=== PATIENT | female | born 1965 | race Caucasian/White ===

== ENCOUNTER 2020-10-25 20:10 | Emergency (ER) | payer MEDICARE, MEDICAID ==
[~2020-10-25] VITALS: Ht 170.2 cm; Wt 64.0 kg
[2020-10-25 20:22] VITALS: BP 137/90
[2020-10-25 21:42] LABS: BASOPHILS % 0.2 % (0.0-2.0); EOSINOPHILS % 0.3 % (0.0-5.0); HEMATOCRIT. 32.8 % (36.0-48.0); HEMOGLOBIN. 10.9 g/dL (12.0-16.0); LYMPHOCYTES % 13.6 % (20.0-50.0); MEAN CORPUSCULAR HEMOGLOBIN 31.8 pg (28.0-32.0); MEAN CORPUSCULAR VOLUME 95.7 fL (81.0-99.0); MEAN PLATELET VOLUME 8.6 fl (7.4-10.4); MONOCYTES % 9.5 % (2.0-8.0); NEUTROPHILS % 76.4 % (40.0-76.0); PLATELET 188 x1000/uL (130-400); RED BLOOD CELL COUNT 3.43 mill/uL (4.2-5.4); RED CELL DISTRIBUTION WIDTH 14.1 % (11.6-14.6)
[2020-10-25 21:47] LABS: CHLORIDE 94 mEq/L (98-107)
[2020-10-25 21:51] LABS: PROTHROMBIN TIME 10.3 sec (9.6-11.0)
== END 2020-10-25 23:36 | disposition home or self-care (01) ==
LOC: ER 20:10
DX: N18.5 Chronic kidney disease, stage 5 (principal); I50.9 Heart failure, unspecified; Z88.0 Allergy status to penicillin; Z86.73 Personal history of transient ischemic attack (TIA), and cerebral infarction without residual deficits
CPT/HCPCS: 36415; 71045; 80053; 85025; 93005; 99285

== ENCOUNTER 2020-10-30 03:05 | Emergency (ER) | payer MEDICARE, MEDICAID ==
[~2020-10-30] VITALS: Ht 162.6 cm; Wt 56.0 kg
[2020-10-30] MEDS ORDERED: ACETAMINOPHEN 325MG TABLET PO STA (03:29)
[2020-10-30 03:54] LABS: BASOPHILS % 0.9 % (0.0-2.0); EOSINOPHILS % 0.4 % (0.0-5.0); HEMATOCRIT. 32.2 % (36.0-48.0); HEMOGLOBIN. 10.4 g/dL (12.0-16.0); LYMPHOCYTES % 9.6 % (20.0-50.0); MEAN CORPUSCULAR HEMOGLOBIN 31.6 pg (28.0-32.0); MEAN CORPUSCULAR VOLUME 97.6 fL (81.0-99.0); MEAN PLATELET VOLUME 7.7 fl (7.4-10.4); MONOCYTES % 5.9 % (2.0-8.0); NEUTROPHILS % 83.2 % (40.0-76.0); PLATELET 204 x1000/uL (130-400); RED CELL DISTRIBUTION WIDTH 14.7 % (11.6-14.6)
[2020-10-30 03:59] LABS: CHLORIDE 93 mEq/L (98-107)
[2020-10-30] MEDS ORDERED: ONDANSETRON HCL 4MG/2ML INJ IV STA (04:20)
[2020-10-30 04:56] LABS: CLARITY URINE TURBID (CLEAR); COLOR URINE YELLOW (YELLOW); KETONES URINE TRACE (NEGATIVE); LEUKOCYTE ESTERASE URINE 3+ (NEGATIVE); NITRITE URINE NEGATIVE (NEGATIVE); OCCULT BLOOD URINE 2+ (NEGATIVE); PH URINE 6.5 (4.5-8.0); PROTEIN URINE 3+ (NEGATIVE); SPECIFIC GRAVITY URINE 1.017 (1.005-1.030); UROBILINOGEN URINE 0.2 E.U./dL (0.2-1.0)
[2020-10-30] MEDS ORDERED: CEFTRIAXONE 1 G PREMIX 50 ML IV ONE (06:00)
[2020-10-30] MEDS ORDERED: CEPH500C2 MT (06:26)
[2020-10-30] MEDS ORDERED: ACET-2708 MT (06:26)
[2020-10-30 07:39] VITALS: BP 150/68
== END 2020-10-30 08:16 | disposition home or self-care (01) ==
LOC: ER 03:05
DX: R10.9 Unspecified abdominal pain (principal); N39.0 Urinary tract infection, site not specified; I12.0 Hypertensive chronic kidney disease with stage 5 chronic kidney disease or end stage renal disease; N18.6 End stage renal disease; Z99.2 Dependence on renal dialysis; Z88.0 Allergy status to penicillin; Z98.84 Bariatric surgery status
CPT/HCPCS: 36415; 74176; 80053; 81003; 83690; 85025; 87077; 87086; 87186; 93005; 96365; 96375; 99285; J0696; J2405

== ENCOUNTER 2021-11-12 03:00 | Inpatient (IN) | payer MEDICARE, MEDICAID ==
[~2021-11-12] VITALS: Ht 167.6 cm; Wt 45.4 kg
[~2021-11-12 03:00] MED LIST: ACET-2708 MT; CEPH500C2 MT
[2021-11-12] MEDS ORDERED: ONDANSETRON HCL 4MG/2ML INJ IV STA (04:11)
[2021-11-12] MEDS ORDERED: PANTOPRAZOLE SODIUM 40 MG/VIAL IV STA (04:11)
[2021-11-12] MEDS ORDERED: ONDANSETRON HCL 4MG/2ML INJ IV NR (05:30)
[2021-11-12] MEDS ORDERED: PANTOPRAZOLE SODIUM 40 MG/VIAL IV NR (05:30)
[2021-11-12 05:53] LABS: BASOPHILS % 0.4 % (0.0-2.0); HEMATOCRIT. 32.2 % (36.0-48.0); HEMOGLOBIN. 10.4 g/dL (12.0-16.0); MEAN CORPUSCULAR HEMOGLOBIN 31.6 pg (28.0-32.0); MEAN CORPUSCULAR VOLUME 97.6 fL (81.0-99.0); MEAN PLATELET VOLUME 8.9 fl (7.4-10.4); MONOCYTES % 4.3 % (2.0-8.0); NEUTROPHILS % 87.3 % (40.0-76.0); PLATELET 171 x1000/uL (130-400); RED CELL DISTRIBUTION WIDTH 15.1 % (11.6-14.6)
[2021-11-12 06:03] LABS: CHLORIDE 102 mEq/L (98-107)
[2021-11-12 09:10] VITALS: BP 168/78
[2021-11-12 09:30] VITALS: BP 155/70
[2021-11-12] MEDS ORDERED: LORAZEPAM 2MG/ML CPJ IV PRN (10:45)
[2021-11-12] MEDS ORDERED: ACETAMINOPHEN 650MG SUPP PR PRN (10:45)
[2021-11-12] MEDS ORDERED: IPRATROPIUM/ALBUTEROL 0.5-3(2.5)MG/3ML NEB NEB PRN (10:45)
[2021-11-12] MEDS ORDERED: NALOXONE HCL 0.4MG/ML VIAL IV PRN (11:00)
[2021-11-12 12:30] VITALS: BP 144/78
[2021-11-12] MEDS: PANTOPRAZOLE SODIUM 40 MG/VIAL IV SCH ×2 (12:33→20:10)
[2021-11-12] MEDS: DEXT 5%/0.45% NACL 1000ML 1,000 ML IV SCH (12:34)
[2021-11-12 13:26] LABS: FERRITIN 128 ng/mL (10-291)
[2021-11-12 13:34] LABS: HEPATITIS B SURFACE ANTIGEN NEGATIVE
[2021-11-12 13:39] LABS: VITAMIN B12 SERUM 592 pg/mL (211-911)
[2021-11-12 13:43] LABS: BASOPHILS % 0.2 % (0.0-2.0); EOSINOPHILS % 0.2 % (0.0-5.0); HEMATOCRIT. 30.1 % (36.0-48.0); HEMOGLOBIN. 10.1 g/dL (12.0-16.0); LYMPHOCYTES % 10.6 % (20.0-50.0); MEAN CORPUSCULAR HEMOGLOBIN 32.3 pg (28.0-32.0); MEAN PLATELET VOLUME 9.1 fl (7.4-10.4); MONOCYTES % 4.4 % (2.0-8.0); NEUTROPHILS % 84.6 % (40.0-76.0); PLATELET 161 x1000/uL (130-400); RED BLOOD CELL COUNT 3.14 mill/uL (4.2-5.4); RED CELL DISTRIBUTION WIDTH 15.6 % (11.6-14.6)
[2021-11-12 16:00] VITALS: BP 142/77
[2021-11-12] MEDS: MORPHINE SULFATE 2 MG/ML CPJ (NOT FOR IM USE) IV PRN ×2 (16:24→22:32)
[2021-11-12] MEDS: ASCORBIC ACID 500 MG TABLET PO SCH ×2 (18:07→20:10)
[2021-11-12] MEDS: FERROUS SULFATE 325MG TABLET PO SCH (18:07)
[2021-11-12 20:00] VITALS: BP 144/77
[2021-11-12] MEDS: ONDANSETRON HCL 4MG/2ML INJ IV PRN (20:10)
[2021-11-13] VITALS: BP 134/65
[2021-11-13 00:50] LABS: HEMATOCRIT. 28.2 % (36.0-48.0); HEMOGLOBIN. 9.5 g/dL (12.0-16.0); MEAN CORPUSCULAR HEMOGLOBIN 32.1 pg (28.0-32.0); MEAN CORPUSCULAR VOLUME 95.9 fL (81.0-99.0); MEAN PLATELET VOLUME 8.9 fl (7.4-10.4); PLATELET 127 x1000/uL (130-400); RED BLOOD CELL COUNT 2.95 mill/uL (4.2-5.4); RED CELL DISTRIBUTION WIDTH 15.4 % (11.6-14.6)
[2021-11-13 04:00] VITALS: BP 146/64
[2021-11-13] MEDS: MORPHINE SULFATE 2 MG/ML CPJ (NOT FOR IM USE) IV PRN ×2 (04:30→20:38)
[2021-11-13 05:00] LABS: PLATELET ESTIMATE SLIGHTLY DECREASED
[2021-11-13 07:50] LABS: MEAN CORPUSCULAR HEMOGLOBIN 31.9 pg (28.0-32.0); MEAN PLATELET VOLUME 9.2 fl (7.4-10.4); PLATELET 127 x1000/uL (130-400); RED BLOOD CELL COUNT 2.81 mill/uL (4.2-5.4); RED CELL DISTRIBUTION WIDTH 15.8 % (11.6-14.6)
[2021-11-13 08:00] VITALS: BP 107/65
[2021-11-13] MEDS: FERROUS SULFATE 325MG TABLET PO SCH ×3 (08:10→18:25)
[2021-11-13 08:12] LABS: CHLORIDE 111 mEq/L (98-107)
[2021-11-13 08:30] LABS: HDL CHOLESTEROL 67 mg/dL (40-59); LDL CHOLESTEROL 27 mg/dL (5-100)
[2021-11-13] MEDS: ASCORBIC ACID 500 MG TABLET PO SCH ×2 (08:55→20:37)
[2021-11-13] MEDS: PANTOPRAZOLE SODIUM 40 MG/VIAL IV SCH ×2 (09:03→20:37)
[2021-11-13] MEDS ORDERED: LEVOFLOXACIN 500MG PREMIX 100 ML IV SCH (10:30)
[2021-11-13] MEDS: DEXT 5%/0.45% NACL 1000ML 1,000 ML IV SCH (10:33)
[2021-11-13 12:00] VITALS: BP 119/70
[2021-11-13 12:20] LABS: HEMATOCRIT 25.1 % (36.0-48.0); HEMOGLOBIN 8.1 g/dL (12.0-16.0)
[2021-11-13] MEDS ORDERED: MIDAZOLAM HCL 5 MG/5 ML VIAL ONE (12:38)
[2021-11-13] MEDS ORDERED: LIDOCAINE HCL 1% 20ML VIAL (Pyxis) INJ ONE (12:39)
[2021-11-13] MEDS ORDERED: PROPOFOL 200MG/20ML VIAL IV ONE (12:39)
[2021-11-13 13:08] LABS: PLATELET ESTIMATE SLIGHTLY DECREASED
[2021-11-13 16:00] VITALS: BP 143/65
[2021-11-13] MEDS: SUCRALFATE 1 G/10 ML UDC PO SCH ×2 (18:25→20:37)
[2021-11-13] MEDS: LEVOFLOXACIN 250MG PREMIX 50 ML IV SCH (18:25)
[2021-11-13 20:00] VITALS: BP 156/75
[2021-11-13 20:41] LABS: HEMATOCRIT 23.7 % (36.0-48.0); HEMOGLOBIN 7.2 g/dL (12.0-16.0)
[2021-11-14] VITALS: BP 115/80
[2021-11-14 04:00] VITALS: BP 100/81
[2021-11-14 06:19] LABS: BASOPHILS % 0.1 % (0.0-2.0); EOSINOPHILS % 0.3 % (0.0-5.0); HEMATOCRIT. 25.3 % (36.0-48.0); HEMOGLOBIN. 8.1 g/dL (12.0-16.0); LYMPHOCYTES % 8.8 % (20.0-50.0); MEAN CORPUSCULAR HEMOGLOBIN 31.9 pg (28.0-32.0); MEAN CORPUSCULAR VOLUME 99.4 fL (81.0-99.0); MEAN PLATELET VOLUME 9.1 fl (7.4-10.4); MONOCYTES % 7.4 % (2.0-8.0); NEUTROPHILS % 83.4 % (40.0-76.0); PLATELET 115 x1000/uL (130-400); RED BLOOD CELL COUNT 2.54 mill/uL (4.2-5.4); RED CELL DISTRIBUTION WIDTH 15.7 % (11.6-14.6)
[2021-11-14] MEDS: SUCRALFATE 1 G/10 ML UDC PO SCH ×4 (07:40→22:56)
[2021-11-14] MEDS: ASCORBIC ACID 500 MG TABLET PO SCH ×2 (09:03→22:56)
[2021-11-14] MEDS: FERROUS SULFATE 325MG TABLET PO SCH ×3 (09:03→18:15)
[2021-11-14] MEDS: PANTOPRAZOLE SODIUM 40 MG/VIAL IV SCH ×2 (09:03→22:56)
[2021-11-14] MEDS: DEXT 5%/0.45% NACL 1000ML 1,000 ML IV SCH (11:23)
[2021-11-14 11:41] LABS: BG BASE EXCESS -3.6 mmol/L (-2.0-2.0); BG CARBOXYHEMOGLOBIN 1.1 % (0.5-1.5); BG DEOXYHEMOGLOBIN 3.1 % (0.0-5.0); BG FRACTION INSPIRED OXYGEN 21; BG HCO3 ACT 21.6 mmol/L (22.0-26.0); BG METHEMOGLOBIN 0.3 % (0.0-1.5); BG OXYGEN SATURATION 96.9 % (92.0-98.5); BG OXYHEMOGLOBIN 95.5 % (94.0-97.0); BG PCO2 39.3 mmHg (35.0-45.0); BG PH 7.357 (7.350-7.450); BG PO2 92.7 mmHg (75.0-100.0); BG SAMPLE SITE RIGHT RADIAL; BG TOTAL HEMOGLOBIN 9.3 g/dL (12.0-18.0); BG VENT MODE ROOM AIR
[2021-11-14 12:00] VITALS: BP 145/87
[2021-11-14] MEDS ORDERED: DIATR MEGLU/DIATRIZOATE SOLN 30ML PO SCH (13:00)
[2021-11-14] MEDS ORDERED: IOHEXOL-300 100 ML BOTTLE ONE (15:19)
[2021-11-14] MEDS: METRONIDAZOLE 500 MG PREMIX 100 ML IV SCH (18:14)
[2021-11-14 20:00] VITALS: BP 171/86
[2021-11-14 20:45] LABS: HEMATOCRIT 23.8 % (36.0-48.0); HEMOGLOBIN 7.8 g/dL (12.0-16.0)
[2021-11-14] MEDS: EPOETIN ALFA-EPBX 10,000 UNIT/ML VIAL SUBCUT SCH (22:57)
[2021-11-14] MEDS: MORPHINE SULFATE 2 MG/ML CPJ (NOT FOR IM USE) IV PRN (22:58)
[2021-11-15] VITALS: BP 136/77
[2021-11-15 01:08] LABS: HEMATOCRIT 27.7 % (36.0-48.0)
[2021-11-15 04:00] VITALS: BP 159/87
[2021-11-15 04:05] LABS: CLARITY URINE CLEAR (CLEAR); COLOR URINE YELLOW (YELLOW); KETONES URINE NEGATIVE (NEGATIVE); LEUKOCYTE ESTERASE URINE TRACE (NEGATIVE); NITRITE URINE NEGATIVE (NEGATIVE); OCCULT BLOOD URINE NEGATIVE (NEGATIVE); PH URINE 5.5 (4.5-8.0); PROTEIN URINE 3+ (NEGATIVE); SPECIFIC GRAVITY URINE 1.023 (1.005-1.030); UROBILINOGEN URINE 0.2 E.U./dL (0.2-1.0)
[2021-11-15] MEDS: SUCRALFATE 1 G/10 ML UDC PO SCH ×4 (06:18→23:02)
[2021-11-15] MEDS: METRONIDAZOLE 500 MG PREMIX 100 ML IV SCH ×2 (06:18→17:12)
[2021-11-15 08:00] VITALS: BP 168/60
[2021-11-15] MEDS: FERROUS SULFATE 325MG TABLET PO SCH ×3 (09:20→17:12)
[2021-11-15] MEDS: PANTOPRAZOLE SODIUM 40 MG/VIAL IV SCH ×2 (09:20→23:00)
[2021-11-15] MEDS: ASCORBIC ACID 500 MG TABLET PO SCH ×2 (09:20→23:02)
[2021-11-15] MEDS: DEXT 5%/0.45% NACL 1000ML 1,000 ML IV SCH (09:57)
[2021-11-15] MEDS ORDERED: OMEP40CA20 MT (11:13)
[2021-11-15] MEDS ORDERED: SUCR1TAB MT (11:13)
[2021-11-15 11:45] LABS: BASOPHILS % 0.2 % (0.0-2.0); EOSINOPHILS % 0.5 % (0.0-5.0); HEMATOCRIT. 29.5 % (36.0-48.0); HEMOGLOBIN. 9.5 g/dL (12.0-16.0); LYMPHOCYTES % 14.1 % (20.0-50.0); MEAN CORPUSCULAR HEMOGLOBIN 31.9 pg (28.0-32.0); MEAN CORPUSCULAR VOLUME 99.2 fL (81.0-99.0); MEAN PLATELET VOLUME 9.1 fl (7.4-10.4); MONOCYTES % 6.6 % (2.0-8.0); NEUTROPHILS % 78.6 % (40.0-76.0); PLATELET 132 x1000/uL (130-400); RED BLOOD CELL COUNT 2.98 mill/uL (4.2-5.4); RED CELL DISTRIBUTION WIDTH 16.2 % (11.6-14.6)
[2021-11-15 12:00] VITALS: BP 139/71
[2021-11-15] MEDS: MORPHINE SULFATE 2 MG/ML CPJ (NOT FOR IM USE) IV PRN (12:01)
[2021-11-15] MEDS: LEVOFLOXACIN 250MG PREMIX 50 ML IV SCH (12:02)
[2021-11-15] MEDS ORDERED: LEVO250T58 MT (13:01)
[2021-11-15 20:00] VITALS: BP 136/52
[2021-11-16] VITALS: BP 167/86
[2021-11-16] MEDS: MORPHINE SULFATE 2 MG/ML CPJ (NOT FOR IM USE) IV PRN ×2 (00:53→08:39)
[2021-11-16 04:00] VITALS: BP 179/83
[2021-11-16] MEDS: HYDRALAZINE 20MG/ML VIAL IV PRN (05:40)
[2021-11-16] MEDS: METRONIDAZOLE 500 MG PREMIX 100 ML IV SCH ×2 (05:40→17:01)
[2021-11-16 08:00] VITALS: BP 157/78
[2021-11-16] MEDS: FERROUS SULFATE 325MG TABLET PO SCH ×3 (08:37→17:01)
[2021-11-16] MEDS: PANTOPRAZOLE SODIUM 40 MG/VIAL IV SCH ×2 (08:37→21:55)
[2021-11-16] MEDS: ASCORBIC ACID 500 MG TABLET PO SCH ×2 (08:37→21:55)
[2021-11-16] MEDS: SUCRALFATE 1 G/10 ML UDC PO SCH ×4 (08:37→21:55)
[2021-11-16 12:00] VITALS: BP 175/105
[2021-11-16] MEDS: AMLODIPINE 10MG TABLET PO SCH (13:54)
[2021-11-16 16:00] VITALS: BP 138/81
[2021-11-16 20:00] VITALS: BP 164/87
[2021-11-17] VITALS (7 sets, daily range): BP systolic 128–173; BP diastolic 71–109
[2021-11-17 01:27] LABS: HEPATITIS B SURFACE ANTIGEN NEGATIVE
[2021-11-17] MEDS: METRONIDAZOLE 500 MG PREMIX 100 ML IV SCH ×2 (05:07→17:32)
[2021-11-17] MEDS: PANTOPRAZOLE SODIUM 40 MG/VIAL IV SCH ×2 (08:59→20:43)
[2021-11-17] MEDS: AMLODIPINE 10MG TABLET PO SCH ×2 (08:59→12:35)
[2021-11-17] MEDS: SUCRALFATE 1 G/10 ML UDC PO SCH ×4 (08:59→20:43)
[2021-11-17] MEDS: ASCORBIC ACID 500 MG TABLET PO SCH ×2 (08:59→20:43)
[2021-11-17] MEDS: FERROUS SULFATE 325MG TABLET PO SCH ×3 (08:59→17:32)
[2021-11-17] MEDS: LEVOFLOXACIN 250MG PREMIX 50 ML IV SCH (12:34)
[2021-11-17] MEDS ORDERED: NALOXONE HCL 0.4MG/ML VIAL IV PRN (20:30)
[2021-11-17] MEDS: EPOETIN ALFA-EPBX 10,000 UNIT/ML VIAL SUBCUT SCH (20:43)
[2021-11-17] MEDS: HYDROCODONE/ACETAMINOPHEN 5/325MG TABLET PO PRN (20:45)
[2021-11-18] VITALS: BP 133/73
[2021-11-18 04:00] VITALS: BP 147/93
[2021-11-18] MEDS: HYDROCODONE/ACETAMINOPHEN 5/325MG TABLET PO PRN ×3 (04:43→20:43)
[2021-11-18 06:16] LABS: BASOPHILS % 0.4 % (0.0-2.0); EOSINOPHILS % 0.6 % (0.0-5.0); HEMATOCRIT. 27.3 % (36.0-48.0); LYMPHOCYTES % 24.5 % (20.0-50.0); MEAN CORPUSCULAR HEMOGLOBIN 31.9 pg (28.0-32.0); MEAN CORPUSCULAR VOLUME 96.7 fL (81.0-99.0); MEAN PLATELET VOLUME 8.9 fl (7.4-10.4); MONOCYTES % 11.1 % (2.0-8.0); NEUTROPHILS % 63.4 % (40.0-76.0); PLATELET 145 x1000/uL (130-400); RED BLOOD CELL COUNT 2.83 mill/uL (4.2-5.4); RED CELL DISTRIBUTION WIDTH 15.8 % (11.6-14.6)
[2021-11-18 08:30] VITALS: BP 142/73
[2021-11-18] MEDS: METRONIDAZOLE 500MG TABLET PO SCH ×2 (09:28→20:43)
[2021-11-18] MEDS: ASCORBIC ACID 500 MG TABLET PO SCH ×2 (09:28→20:43)
[2021-11-18] MEDS: AMLODIPINE 10MG TABLET PO SCH (09:28)
[2021-11-18] MEDS: FERROUS SULFATE 325MG TABLET PO SCH ×3 (09:29→17:54)
[2021-11-18] MEDS: PANTOPRAZOLE SODIUM 40 MG/VIAL IV SCH ×2 (09:29→20:42)
[2021-11-18] MEDS: SUCRALFATE 1 G/10 ML UDC PO SCH ×4 (09:29→20:42)
[2021-11-18 12:00] VITALS: BP 138/71
[2021-11-18 16:00] VITALS: BP 133/76
[2021-11-18 20:00] VITALS: BP 133/72
[2021-11-19] VITALS: BP 149/87
[2021-11-19 04:00] VITALS: BP 156/91
[2021-11-19] MEDS: HYDROCODONE/ACETAMINOPHEN 5/325MG TABLET PO PRN ×2 (04:13→09:40)
[2021-11-19 06:32] LABS: BASOPHILS % 0.5 % (0.0-2.0); EOSINOPHILS % 0.4 % (0.0-5.0); HEMATOCRIT. 24.5 % (36.0-48.0); HEMOGLOBIN. 8.1 g/dL (12.0-16.0); LYMPHOCYTES % 26.4 % (20.0-50.0); MEAN CORPUSCULAR HEMOGLOBIN 31.6 pg (28.0-32.0); MEAN CORPUSCULAR VOLUME 96.4 fL (81.0-99.0); MEAN PLATELET VOLUME 9.3 fl (7.4-10.4); MONOCYTES % 11.1 % (2.0-8.0); NEUTROPHILS % 61.6 % (40.0-76.0); PLATELET 159 x1000/uL (130-400); RED BLOOD CELL COUNT 2.55 mill/uL (4.2-5.4); RED CELL DISTRIBUTION WIDTH 15.9 % (11.6-14.6)
[2021-11-19] MEDS: SUCRALFATE 1 G/10 ML UDC PO SCH ×4 (06:34→21:09)
[2021-11-19] MEDS: FERROUS SULFATE 325MG TABLET PO SCH ×3 (07:49→17:26)
[2021-11-19 08:00] VITALS: BP 139/81
[2021-11-19] MEDS: PANTOPRAZOLE SODIUM 40 MG/VIAL IV SCH ×2 (09:30→21:11)
[2021-11-19] MEDS: METRONIDAZOLE 500MG TABLET PO SCH ×2 (09:31→21:33)
[2021-11-19] MEDS: AMLODIPINE 10MG TABLET PO SCH (09:31)
[2021-11-19] MEDS: ASCORBIC ACID 500 MG TABLET PO SCH ×2 (09:31→21:08)
[2021-11-19] MEDS ORDERED: LEVOFLOXACIN 250MG TABLET PO SCH (11:00)
[2021-11-19 12:00] VITALS: BP_SYST 156; BP_SYST 178; BP_DIAS 78; BP_DIAS 79
[2021-11-19 16:00] VITALS: BP 122/75
[2021-11-19 20:00] VITALS: BP 116/70
[2021-11-19] MEDS: EPOETIN ALFA-EPBX 10,000 UNIT/ML VIAL SUBCUT SCH (21:11)
[2021-11-19] MEDS: DIPHENHYDRAMINE 50MG/ML VIAL IV PRN (21:19)
[2021-11-20] VITALS: BP 124/72
[2021-11-20] MEDS: HYDROCODONE/ACETAMINOPHEN 5/325MG TABLET PO PRN ×3 (00:46→17:25)
[2021-11-20 04:00] VITALS: BP 129/70
[2021-11-20 08:00] VITALS: BP 126/70
[2021-11-20] MEDS: FERROUS SULFATE 325MG TABLET PO SCH ×3 (08:46→17:25)
[2021-11-20] MEDS: SUCRALFATE 1 G/10 ML UDC PO SCH ×4 (08:46→20:54)
[2021-11-20] MEDS: ASCORBIC ACID 500 MG TABLET PO SCH ×2 (08:47→20:55)
[2021-11-20] MEDS: AMLODIPINE 10MG TABLET PO SCH (08:47)
[2021-11-20] MEDS: PANTOPRAZOLE SODIUM 40 MG/VIAL IV SCH ×2 (09:28→20:54)
[2021-11-20 12:00] VITALS: BP 117/71
[2021-11-20] MEDS: ONDANSETRON HCL 4MG/2ML INJ IV PRN (14:10)
[2021-11-20 16:00] VITALS: BP 129/71
[2021-11-20 18:46] LABS: HEPATITIS B SURFACE ANTIGEN NEGATIVE
[2021-11-20 20:00] VITALS: BP 110/70
[2021-11-21] VITALS: BP 150/88
[2021-11-21] MEDS: HYDROCODONE/ACETAMINOPHEN 5/325MG TABLET PO PRN ×3 (00:14→21:57)
[2021-11-21 04:00] VITALS: BP 127/68
[2021-11-21 08:00] VITALS: BP 103/64
[2021-11-21] MEDS: AMLODIPINE 10MG TABLET PO SCH (09:00)
[2021-11-21] MEDS: SUCRALFATE 1 G/10 ML UDC PO SCH ×4 (09:14→21:54)
[2021-11-21] MEDS: PANTOPRAZOLE SODIUM 40 MG/VIAL IV SCH ×2 (09:14→21:54)
[2021-11-21] MEDS: FERROUS SULFATE 325MG TABLET PO SCH ×3 (09:15→18:48)
[2021-11-21] MEDS: ASCORBIC ACID 500 MG TABLET PO SCH ×2 (09:15→21:53)
[2021-11-21] MEDS ORDERED: METOCLOPRAMIDE HCL 10MG/2ML VIAL IV NR (11:15)
[2021-11-21] MEDS ORDERED: SORBITOL 70% SOLN 30ML PO NR (11:15)
[2021-11-21 12:00] VITALS: BP 155/71
[2021-11-21 16:00] VITALS: BP 116/70
[2021-11-21] MEDS: DOCUSATE SODIUM 250MG CAPSULE PO SCH (18:48)
[2021-11-21 20:00] VITALS: BP 135/86
[2021-11-21] MEDS: EPOETIN ALFA-EPBX 4,000 UNIT/ML VIAL SUBCUT SCH (21:54)
[2021-11-21] MEDS: EPOETIN ALFA-EPBX 10,000 UNIT/ML VIAL SUBCUT SCH (21:54)
[2021-11-21] MEDS: SENNOSIDES/DOCUSATE SOD 8.6/50MG TABLET PO SCH (21:55)
[2021-11-22] VITALS: BP 146/96
[2021-11-22 04:00] VITALS: BP 132/67
[2021-11-22] MEDS: SUCRALFATE 1 G/10 ML UDC PO SCH ×4 (06:28→21:04)
[2021-11-22] MEDS: HYDROCODONE/ACETAMINOPHEN 5/325MG TABLET PO PRN ×3 (06:39→19:57)
[2021-11-22 08:00] VITALS: BP 153/83
[2021-11-22 08:29] LABS: BASOPHILS % 0.4 % (0.0-2.0); EOSINOPHILS % 0.3 % (0.0-5.0); HEMATOCRIT. 25.8 % (36.0-48.0); HEMOGLOBIN. 8.3 g/dL (12.0-16.0); LYMPHOCYTES % 22.4 % (20.0-50.0); MEAN CORPUSCULAR HEMOGLOBIN 31.6 pg (28.0-32.0); MEAN PLATELET VOLUME 8.2 fl (7.4-10.4); MONOCYTES % 9.2 % (2.0-8.0); NEUTROPHILS % 67.7 % (40.0-76.0); PLATELET 179 x1000/uL (130-400); RED BLOOD CELL COUNT 2.61 mill/uL (4.2-5.4); RED CELL DISTRIBUTION WIDTH 15.8 % (11.6-14.6)
[2021-11-22] MEDS: AMLODIPINE 10MG TABLET PO SCH (09:12)
[2021-11-22] MEDS: ASCORBIC ACID 500 MG TABLET PO SCH ×2 (09:12→21:05)
[2021-11-22] MEDS: PANTOPRAZOLE SODIUM 40 MG/VIAL IV SCH ×2 (09:12→21:04)
[2021-11-22] MEDS: DOCUSATE SODIUM 250MG CAPSULE PO SCH ×2 (09:12→17:30)
[2021-11-22] MEDS: FERROUS SULFATE 325MG TABLET PO SCH ×3 (09:13→17:30)
[2021-11-22 16:00] VITALS: BP_SYST 119; BP_SYST 121; BP_DIAS 60; BP_DIAS 73
[2021-11-22 20:00] VITALS: BP 134/79
[2021-11-22] MEDS: SENNOSIDES/DOCUSATE SOD 8.6/50MG TABLET PO SCH (21:04)
[2021-11-23] VITALS: BP 129/74
[2021-11-23 04:00] VITALS: BP 130/75
[2021-11-23] MEDS: HYDROCODONE/ACETAMINOPHEN 5/325MG TABLET PO PRN ×2 (05:42→20:06)
[2021-11-23 08:00] VITALS: BP 128/76
[2021-11-23 08:21] LABS: BASOPHILS % 0.6 % (0.0-2.0); EOSINOPHILS % 0.6 % (0.0-5.0); HEMATOCRIT. 24.8 % (36.0-48.0); HEMOGLOBIN. 8.1 g/dL (12.0-16.0); LYMPHOCYTES % 30.8 % (20.0-50.0); MEAN CORPUSCULAR HEMOGLOBIN 32.3 pg (28.0-32.0); MEAN CORPUSCULAR VOLUME 99.2 fL (81.0-99.0); MEAN PLATELET VOLUME 8.2 fl (7.4-10.4); MONOCYTES % 10.3 % (2.0-8.0); NEUTROPHILS % 57.7 % (40.0-76.0); PLATELET 160 x1000/uL (130-400); RED CELL DISTRIBUTION WIDTH 16.2 % (11.6-14.6)
[2021-11-23] MEDS: SUCRALFATE 1 G/10 ML UDC PO SCH ×4 (08:34→20:06)
[2021-11-23] MEDS: DOCUSATE SODIUM 250MG CAPSULE PO SCH ×2 (08:35→17:32)
[2021-11-23] MEDS: PANTOPRAZOLE SODIUM 40 MG/VIAL IV SCH ×2 (08:35→20:06)
[2021-11-23] MEDS: ASCORBIC ACID 500 MG TABLET PO SCH ×2 (08:35→20:06)
[2021-11-23] MEDS: AMLODIPINE 10MG TABLET PO SCH (08:37)
[2021-11-23] MEDS: FERROUS SULFATE 325MG TABLET PO SCH ×3 (08:38→17:32)
[2021-11-23 12:00] VITALS: BP 128/74
[2021-11-23 16:00] VITALS: BP 138/78
[2021-11-23] MEDS ORDERED: NALOXONE HCL 0.4MG/ML VIAL IV PRN (19:00)
[2021-11-23 20:00] VITALS: BP 131/80
[2021-11-23] MEDS: SENNOSIDES/DOCUSATE SOD 8.6/50MG TABLET PO SCH (20:06)
[2021-11-24] VITALS: BP 141/87
[2021-11-24 04:00] VITALS: BP 126/77
[2021-11-24 05:40] LABS: BASOPHILS % 0.4 % (0.0-2.0); EOSINOPHILS % 0.7 % (0.0-5.0); HEMATOCRIT. 24.4 % (36.0-48.0); HEMOGLOBIN. 7.9 g/dL (12.0-16.0); LYMPHOCYTES % 30.5 % (20.0-50.0); MEAN CORPUSCULAR HEMOGLOBIN 31.8 pg (28.0-32.0); MEAN CORPUSCULAR VOLUME 97.6 fL (81.0-99.0); MEAN PLATELET VOLUME 8.1 fl (7.4-10.4); MONOCYTES % 8.3 % (2.0-8.0); NEUTROPHILS % 60.1 % (40.0-76.0); PLATELET 176 x1000/uL (130-400); RED CELL DISTRIBUTION WIDTH 16.6 % (11.6-14.6)
[2021-11-24 08:00] VITALS: BP 148/81
[2021-11-24] MEDS: DOCUSATE SODIUM 250MG CAPSULE PO SCH ×2 (08:29→17:12)
[2021-11-24] MEDS: AMLODIPINE 10MG TABLET PO SCH (08:29)
[2021-11-24] MEDS: ASCORBIC ACID 500 MG TABLET PO SCH ×2 (08:29→21:12)
[2021-11-24] MEDS: FERROUS SULFATE 325MG TABLET PO SCH ×3 (08:29→17:12)
[2021-11-24] MEDS: SUCRALFATE 1 G/10 ML UDC PO SCH ×4 (08:29→21:11)
[2021-11-24] MEDS: PANTOPRAZOLE SODIUM 40 MG/VIAL IV SCH ×2 (08:45→21:11)
[2021-11-24] MEDS: HYDROCODONE/ACETAMINOPHEN 5/325MG TABLET PO PRN ×2 (09:05→17:13)
[2021-11-24 12:00] VITALS: BP 135/80
[2021-11-24 16:00] VITALS: BP 131/78
[2021-11-24 20:00] VITALS: BP 135/77
[2021-11-24] MEDS: EPOETIN ALFA-EPBX 4,000 UNIT/ML VIAL SUBCUT SCH (21:11)
[2021-11-24] MEDS: EPOETIN ALFA-EPBX 10,000 UNIT/ML VIAL SUBCUT SCH (21:11)
[2021-11-24] MEDS: SENNOSIDES/DOCUSATE SOD 8.6/50MG TABLET PO SCH (21:12)
[2021-11-25] VITALS: BP 143/86
[2021-11-25 04:00] VITALS: BP 152/89
[2021-11-25] MEDS: HYDROCODONE/ACETAMINOPHEN 5/325MG TABLET PO PRN ×3 (05:30→21:03)
[2021-11-25 08:00] VITALS: BP 128/71
[2021-11-25 09:36] LABS: BASOPHILS % 0.3 % (0.0-2.0); EOSINOPHILS % 0.3 % (0.0-5.0); HEMATOCRIT. 25.6 % (36.0-48.0); LYMPHOCYTES % 13.1 % (20.0-50.0); MEAN CORPUSCULAR HEMOGLOBIN 31.3 pg (28.0-32.0); MEAN CORPUSCULAR VOLUME 99.8 fL (81.0-99.0); MEAN PLATELET VOLUME 8.2 fl (7.4-10.4); NEUTROPHILS % 80.3 % (40.0-76.0); PLATELET 172 x1000/uL (130-400); RED BLOOD CELL COUNT 2.56 mill/uL (4.2-5.4); RED CELL DISTRIBUTION WIDTH 16.8 % (11.6-14.6)
[2021-11-25] MEDS: PANTOPRAZOLE SODIUM 40 MG/VIAL IV SCH ×2 (10:22→21:02)
[2021-11-25] MEDS: ASCORBIC ACID 500 MG TABLET PO SCH ×2 (10:23→21:02)
[2021-11-25] MEDS: AMLODIPINE 10MG TABLET PO SCH (10:23)
[2021-11-25] MEDS: FERROUS SULFATE 325MG TABLET PO SCH ×3 (10:23→18:17)
[2021-11-25] MEDS: SUCRALFATE 1 G/10 ML UDC PO SCH ×4 (10:27→21:02)
[2021-11-25] MEDS: DOCUSATE SODIUM 250MG CAPSULE PO SCH ×2 (10:27→17:00)
[2021-11-25 12:00] VITALS: BP 130/76
[2021-11-25 16:00] VITALS: BP 136/80
[2021-11-25 20:00] VITALS: BP 148/92
[2021-11-25] MEDS: SENNOSIDES/DOCUSATE SOD 8.6/50MG TABLET PO SCH (21:02)
[2021-11-25] MEDS: ONDANSETRON HCL 4MG/2ML INJ IV PRN (23:10)
[2021-11-26] VITALS: BP 143/84
[2021-11-26 04:00] VITALS: BP 143/83
[2021-11-26 08:00] VITALS: BP 155/80
[2021-11-26 08:33] LABS: BASOPHILS % 0.5 % (0.0-2.0); EOSINOPHILS % 0.1 % (0.0-5.0); HEMATOCRIT. 25.7 % (36.0-48.0); HEMOGLOBIN. 8.3 g/dL (12.0-16.0); LYMPHOCYTES % 14.5 % (20.0-50.0); MEAN CORPUSCULAR HEMOGLOBIN 32.2 pg (28.0-32.0); MEAN CORPUSCULAR VOLUME 99.8 fL (81.0-99.0); MEAN PLATELET VOLUME 8.1 fl (7.4-10.4); MONOCYTES % 8.7 % (2.0-8.0); NEUTROPHILS % 76.2 % (40.0-76.0); PLATELET 171 x1000/uL (130-400); RED BLOOD CELL COUNT 2.57 mill/uL (4.2-5.4); RED CELL DISTRIBUTION WIDTH 17.4 % (11.6-14.6)
[2021-11-26] MEDS: AMLODIPINE 10MG TABLET PO SCH (09:00)
[2021-11-26] MEDS: FERROUS SULFATE 325MG TABLET PO SCH ×3 (09:00→18:08)
[2021-11-26] MEDS: SUCRALFATE 1 G/10 ML UDC PO SCH ×4 (09:00→21:45)
[2021-11-26] MEDS: ASCORBIC ACID 500 MG TABLET PO SCH ×2 (09:00→21:46)
[2021-11-26] MEDS: DOCUSATE SODIUM 250MG CAPSULE PO SCH ×2 (09:00→18:08)
[2021-11-26] MEDS: PANTOPRAZOLE 40MG DR TABLET PO SCH ×2 (09:00→21:46)
[2021-11-26] MEDS: HYDROCODONE/ACETAMINOPHEN 5/325MG TABLET PO PRN ×4 (09:03→21:47)
[2021-11-26 12:00] VITALS: BP 156/78
[2021-11-26 16:00] VITALS: BP 114/67
[2021-11-26 20:00] VITALS: BP 110/68
[2021-11-26] MEDS: EPOETIN ALFA-EPBX 4,000 UNIT/ML VIAL SUBCUT SCH (21:00)
[2021-11-26] MEDS: SENNOSIDES/DOCUSATE SOD 8.6/50MG TABLET PO SCH (21:46)
[2021-11-26] MEDS: EPOETIN ALFA-EPBX 10,000 UNIT/ML VIAL SUBCUT SCH (21:46)
[2021-11-27] VITALS: BP 109/67
[2021-11-27] MEDS: HYDROCODONE/ACETAMINOPHEN 5/325MG TABLET PO PRN ×3 (02:15→20:54)
[2021-11-27 04:00] VITALS: BP 134/81
[2021-11-27 07:57] VITALS: BP 149/79
[2021-11-27 09:02] LABS: BASOPHILS % 0.2 % (0.0-2.0); EOSINOPHILS % 1.1 % (0.0-5.0); HEMATOCRIT. 24.3 % (36.0-48.0); HEMOGLOBIN. 7.9 g/dL (12.0-16.0); LYMPHOCYTES % 33.3 % (20.0-50.0); MEAN CORPUSCULAR HEMOGLOBIN 32.6 pg (28.0-32.0); MEAN CORPUSCULAR VOLUME 99.8 fL (81.0-99.0); MEAN PLATELET VOLUME 7.8 fl (7.4-10.4); MONOCYTES % 11.7 % (2.0-8.0); NEUTROPHILS % 53.7 % (40.0-76.0); PLATELET 157 x1000/uL (130-400); RED BLOOD CELL COUNT 2.43 mill/uL (4.2-5.4); RED CELL DISTRIBUTION WIDTH 17.6 % (11.6-14.6)
[2021-11-27] MEDS: FERROUS SULFATE 325MG TABLET PO SCH ×3 (09:17→17:14)
[2021-11-27] MEDS: AMLODIPINE 10MG TABLET PO SCH (09:17)
[2021-11-27] MEDS: SUCRALFATE 1 G/10 ML UDC PO SCH ×4 (09:17→20:54)
[2021-11-27] MEDS: DOCUSATE SODIUM 250MG CAPSULE PO SCH ×2 (09:18→17:14)
[2021-11-27] MEDS: ASCORBIC ACID 500 MG TABLET PO SCH ×2 (09:18→20:54)
[2021-11-27] MEDS: PANTOPRAZOLE 40MG DR TABLET PO SCH ×2 (09:18→20:55)
[2021-11-27 12:00] VITALS: BP 130/69
[2021-11-27 16:00] VITALS: BP 144/75
[2021-11-27 20:00] VITALS: BP 124/76
[2021-11-27] MEDS: SENNOSIDES/DOCUSATE SOD 8.6/50MG TABLET PO SCH (21:05)
[2021-11-28] VITALS: BP 141/78
[2021-11-28] MEDS: HYDROCODONE/ACETAMINOPHEN 5/325MG TABLET PO PRN ×2 (01:00→21:55)
[2021-11-28 02:56] LABS: HEPATITIS B SURFACE ANTIGEN NEGATIVE
[2021-11-28 04:00] VITALS: BP 156/75
[2021-11-28 08:00] VITALS: BP 157/87
[2021-11-28] MEDS: AMLODIPINE 10MG TABLET PO SCH (09:00)
[2021-11-28] MEDS: DOCUSATE SODIUM 250MG CAPSULE PO SCH ×2 (09:07→17:00)
[2021-11-28] MEDS: PANTOPRAZOLE 40MG DR TABLET PO SCH ×2 (09:07→21:00)
[2021-11-28] MEDS: FERROUS SULFATE 325MG TABLET PO SCH ×3 (09:07→17:00)
[2021-11-28] MEDS: ASCORBIC ACID 500 MG TABLET PO SCH ×2 (09:07→21:00)
[2021-11-28] MEDS: SUCRALFATE 1 G/10 ML UDC PO SCH ×4 (09:07→21:00)
[2021-11-28 12:00] VITALS: BP 134/79
[2021-11-28 16:00] VITALS: BP 146/83
[2021-11-28 20:00] VITALS: BP 167/95
[2021-11-28] MEDS ORDERED: EPOETIN ALFA-EPBX 10,000 UNIT/ML VIAL SUBCUT SCH (21:00)
[2021-11-28] MEDS: SENNOSIDES/DOCUSATE SOD 8.6/50MG TABLET PO SCH (21:00)
[2021-11-28] MEDS: HYDRALAZINE 20MG/ML VIAL IV PRN (21:01)
[2021-11-28] MEDS ORDERED: NALOXONE HCL 0.4 MG/ML 1ML VIAL IV PRN (22:00)
[2021-11-29] VITALS: BP 136/74
[2021-11-29 04:00] VITALS: BP 156/80
[2021-11-29 08:00] VITALS: BP 149/78
[2021-11-29 08:36] LABS: MEAN CORPUSCULAR HEMOGLOBIN 32.3 pg (28.0-32.0); MEAN CORPUSCULAR VOLUME 102.9 fL (81.0-99.0); MEAN PLATELET VOLUME 8.5 fl (7.4-10.4); PLATELET 174 x1000/uL (130-400); RED CELL DISTRIBUTION WIDTH 18.1 % (11.6-14.6)
[2021-11-29 08:41] LABS: HEMATOCRIT. 29.9 % (36.0-48.0); HEMOGLOBIN. 9.4 g/dL (12.0-16.0)
[2021-11-29] MEDS: SUCRALFATE 1 G/10 ML UDC PO SCH ×4 (08:54→21:14)
[2021-11-29] MEDS: PANTOPRAZOLE 40MG DR TABLET PO SCH ×2 (08:54→21:14)
[2021-11-29] MEDS: AMLODIPINE 10MG TABLET PO SCH (08:54)
[2021-11-29] MEDS: ASCORBIC ACID 500 MG TABLET PO SCH ×2 (08:54→21:14)
[2021-11-29] MEDS: FERROUS SULFATE 325MG TABLET PO SCH ×3 (08:55→17:49)
[2021-11-29] MEDS: DOCUSATE SODIUM 250MG CAPSULE PO SCH ×2 (08:55→17:48)
[2021-11-29] MEDS: HYDROCODONE/ACETAMINOPHEN 5/325MG TABLET PO PRN ×2 (08:58→17:48)
[2021-11-29 12:00] VITALS: BP 142/79
[2021-11-29 16:00] VITALS: BP 156/85
[2021-11-29 17:01] LABS: PLATELET ESTIMATE NORMAL
[2021-11-29 20:00] VITALS: BP 138/90
[2021-11-29] MEDS: SENNOSIDES/DOCUSATE SOD 8.6/50MG TABLET PO SCH (21:14)
[2021-11-30] VITALS: BP 146/82
[2021-11-30] MEDS: HYDROCODONE/ACETAMINOPHEN 5/325MG TABLET PO PRN ×4 (01:00→22:23)
[2021-11-30 04:00] VITALS: BP 146/80
[2021-11-30 07:21] LABS: BASOPHILS % 0.6 % (0.0-2.0); HEMATOCRIT. 30.2 % (36.0-48.0); HEMOGLOBIN. 9.6 g/dL (12.0-16.0); LYMPHOCYTES % 22.5 % (20.0-50.0); MEAN CORPUSCULAR HEMOGLOBIN 32.3 pg (28.0-32.0); MEAN CORPUSCULAR VOLUME 102.1 fL (81.0-99.0); MEAN PLATELET VOLUME 8.2 fl (7.4-10.4); MONOCYTES % 11.2 % (2.0-8.0); NEUTROPHILS % 64.7 % (40.0-76.0); PLATELET 179 x1000/uL (130-400); RED BLOOD CELL COUNT 2.96 mill/uL (4.2-5.4); RED CELL DISTRIBUTION WIDTH 17.9 % (11.6-14.6)
[2021-11-30] MEDS: PANTOPRAZOLE 40MG DR TABLET PO SCH ×2 (09:25→20:39)
[2021-11-30] MEDS: ASCORBIC ACID 500 MG TABLET PO SCH ×2 (09:25→20:39)
[2021-11-30] MEDS: SUCRALFATE 1 G/10 ML UDC PO SCH ×4 (09:25→20:39)
[2021-11-30] MEDS: FERROUS SULFATE 325MG TABLET PO SCH ×3 (09:26→17:18)
[2021-11-30] MEDS: AMLODIPINE 10MG TABLET PO SCH (09:27)
[2021-11-30] MEDS: DOCUSATE SODIUM 250MG CAPSULE PO SCH ×2 (09:29→17:19)
[2021-11-30 12:00] VITALS: BP 148/83
[2021-11-30 16:00] VITALS: BP 156/86
[2021-11-30 20:00] VITALS: BP 143/80
[2021-11-30] MEDS: SENNOSIDES/DOCUSATE SOD 8.6/50MG TABLET PO SCH (20:39)
[2021-11-30] MEDS: HYDRALAZINE HCL 50MG TABLET PO SCH (21:04)
[2021-11-30] MEDS: DIPHENHYDRAMINE 50MG/ML VIAL IV PRN (22:30)
[2021-12-01] VITALS: BP 145/76
[2021-12-01 04:00] VITALS: BP 149/78
[2021-12-01] MEDS: HYDROCODONE/ACETAMINOPHEN 5/325MG TABLET PO PRN (04:02)
[2021-12-01 06:16] LABS: BASOPHILS % 0.3 % (0.0-2.0); EOSINOPHILS % 1.9 % (0.0-5.0); HEMATOCRIT. 29.7 % (36.0-48.0); HEMOGLOBIN. 9.4 g/dL (12.0-16.0); LYMPHOCYTES % 36.7 % (20.0-50.0); MEAN CORPUSCULAR HEMOGLOBIN 32.3 pg (28.0-32.0); MEAN PLATELET VOLUME 7.7 fl (7.4-10.4); MONOCYTES % 10.4 % (2.0-8.0); NEUTROPHILS % 50.7 % (40.0-76.0); PLATELET 188 x1000/uL (130-400); RED BLOOD CELL COUNT 2.91 mill/uL (4.2-5.4); RED CELL DISTRIBUTION WIDTH 17.6 % (11.6-14.6)
[2021-12-01 08:00] VITALS: BP 159/115
[2021-12-01] MEDS: ASCORBIC ACID 500 MG TABLET PO SCH ×2 (09:52→23:21)
[2021-12-01] MEDS: PANTOPRAZOLE 40MG DR TABLET PO SCH ×2 (09:52→23:21)
[2021-12-01] MEDS: FERROUS SULFATE 325MG TABLET PO SCH ×3 (09:52→17:54)
[2021-12-01] MEDS: SUCRALFATE 1 G/10 ML UDC PO SCH ×4 (09:52→23:21)
[2021-12-01] MEDS: AMLODIPINE 10MG TABLET PO SCH (09:52)
[2021-12-01] MEDS: DOCUSATE SODIUM 250MG CAPSULE PO SCH ×2 (09:53→16:42)
[2021-12-01] MEDS: HYDRALAZINE HCL 50MG TABLET PO SCH ×2 (09:53→23:21)
[2021-12-01 12:00] VITALS: BP 144/77
[2021-12-01 16:00] VITALS: BP 142/79
[2021-12-01 20:00] VITALS: BP 143/83
[2021-12-01] MEDS: SENNOSIDES/DOCUSATE SOD 8.6/50MG TABLET PO SCH (23:21)
[2021-12-01] MEDS: EPOETIN ALFA 10000UNITS/ML VIAL SUBCUT SCH (23:22)
[2021-12-02] VITALS: BP 135/78
[2021-12-02] MEDS: HYDROCODONE/ACETAMINOPHEN 5/325MG TABLET PO PRN ×3 (01:13→18:50)
[2021-12-02 04:00] VITALS: BP 145/90
[2021-12-02] MEDS: PANTOPRAZOLE 40MG DR TABLET PO SCH ×2 (06:42→20:56)
[2021-12-02] MEDS: SUCRALFATE 1 G/10 ML UDC PO SCH ×4 (06:42→20:56)
[2021-12-02 08:00] VITALS: BP 138/78
[2021-12-02] MEDS: DOCUSATE SODIUM 250MG CAPSULE PO SCH ×2 (09:00→17:00)
[2021-12-02] MEDS: FERROUS SULFATE 325MG TABLET PO SCH ×3 (09:08→18:49)
[2021-12-02] MEDS: HYDRALAZINE HCL 50MG TABLET PO SCH ×2 (09:09→20:56)
[2021-12-02] MEDS: AMLODIPINE 10MG TABLET PO SCH (09:09)
[2021-12-02] MEDS: ASCORBIC ACID 500 MG TABLET PO SCH ×2 (09:09→20:56)
[2021-12-02 12:00] VITALS: BP 125/76
[2021-12-02 16:00] VITALS: BP 125/72
[2021-12-02] MEDS ORDERED: HYDRALAZINE 10 MG in SODIUM CHLORIDE 0.9% 49.5 ML IV PRN (19:45)
[2021-12-02 20:00] VITALS: BP 141/69
[2021-12-02] MEDS: SENNOSIDES/DOCUSATE SOD 8.6/50MG TABLET PO SCH (20:56)
[2021-12-03] VITALS: BP 131/75
[2021-12-03] MEDS: HYDROCODONE/ACETAMINOPHEN 5/325MG TABLET PO PRN ×3 (01:39→17:19)
[2021-12-03 04:00] VITALS: BP 139/73
[2021-12-03 07:31] LABS: BASOPHILS % 0.7 % (0.0-2.0); EOSINOPHILS % 2.1 % (0.0-5.0); HEMATOCRIT. 30.3 % (36.0-48.0); HEMOGLOBIN. 10.2 g/dL (12.0-16.0); LYMPHOCYTES % 30.4 % (20.0-50.0); MEAN CORPUSCULAR HEMOGLOBIN 33.5 pg (28.0-32.0); MEAN CORPUSCULAR VOLUME 99.9 fL (81.0-99.0); MONOCYTES % 12.7 % (2.0-8.0); NEUTROPHILS % 54.1 % (40.0-76.0); RED BLOOD CELL COUNT 3.03 mill/uL (4.2-5.4); RED CELL DISTRIBUTION WIDTH 17.3 % (11.6-14.6)
[2021-12-03 08:00] VITALS: BP 137/74
[2021-12-03 08:43] LABS: MEAN PLATELET VOLUME 8.4 fl (7.4-10.4); PLATELET 200 x1000/uL (130-400)
[2021-12-03] MEDS: DOCUSATE SODIUM 250MG CAPSULE PO SCH ×2 (10:25→17:00)
[2021-12-03] MEDS: SUCRALFATE 1 G/10 ML UDC PO SCH ×4 (10:26→20:46)
[2021-12-03] MEDS: PANTOPRAZOLE 40MG DR TABLET PO SCH ×2 (10:26→20:47)
[2021-12-03] MEDS: FERROUS SULFATE 325MG TABLET PO SCH ×3 (10:26→17:19)
[2021-12-03] MEDS: AMLODIPINE 10MG TABLET PO SCH (10:26)
[2021-12-03] MEDS: HYDRALAZINE HCL 50MG TABLET PO SCH ×2 (10:26→20:47)
[2021-12-03] MEDS: ASCORBIC ACID 500 MG TABLET PO SCH ×2 (10:28→20:47)
[2021-12-03 12:00] VITALS: BP 139/79
[2021-12-03 16:00] VITALS: BP 116/78
[2021-12-03 20:00] VITALS: BP 137/84
[2021-12-03] MEDS: SENNOSIDES/DOCUSATE SOD 8.6/50MG TABLET PO SCH (20:47)
[2021-12-03] MEDS: EPOETIN ALFA 10000UNITS/ML VIAL SUBCUT SCH (21:00)
[2021-12-03] MEDS ORDERED: NALOXONE HCL 0.4MG/ML VIAL IV PRN (23:45)
[2021-12-04] VITALS: BP 131/78
[2021-12-04] MEDS: TEMAZEPAM 15MG CAPSULE PO PRN (00:17)
[2021-12-04] MEDS: HYDROCODONE/ACETAMINOPHEN 5/325MG TABLET PO PRN ×3 (00:18→17:13)
[2021-12-04 04:00] VITALS: BP 151/78
[2021-12-04 08:00] VITALS: BP 142/90
[2021-12-04] MEDS: HYDRALAZINE HCL 50MG TABLET PO SCH ×2 (09:26→21:47)
[2021-12-04] MEDS: SUCRALFATE 1 G/10 ML UDC PO SCH ×4 (09:26→21:46)
[2021-12-04] MEDS: DOCUSATE SODIUM 250MG CAPSULE PO SCH ×2 (09:26→17:04)
[2021-12-04] MEDS: ASCORBIC ACID 500 MG TABLET PO SCH ×2 (09:26→21:47)
[2021-12-04] MEDS: AMLODIPINE 10MG TABLET PO SCH (09:26)
[2021-12-04] MEDS: FERROUS SULFATE 325MG TABLET PO SCH ×3 (09:26→17:11)
[2021-12-04] MEDS: PANTOPRAZOLE 40MG DR TABLET PO SCH ×2 (09:26→21:47)
[2021-12-04 11:02] LABS: HEMATOCRIT. 38.6 % (36.0-48.0); HEMOGLOBIN. 12.4 g/dL (12.0-16.0); MEAN CORPUSCULAR HEMOGLOBIN 32.5 pg (28.0-32.0); MEAN CORPUSCULAR VOLUME 101.1 fL (81.0-99.0); RED BLOOD CELL COUNT 3.82 mill/uL (4.2-5.4); RED CELL DISTRIBUTION WIDTH 17.1 % (11.6-14.6)
[2021-12-04 12:00] VITALS: BP 141/78
[2021-12-04 13:02] LABS: PLATELET 221 x1000/uL (130-400); PLATELET ESTIMATE NORMAL
[2021-12-04] MEDS ORDERED: SODIUM POLYSTYRENE SULFONATE 15 G/60 ML BOT PO NR (15:45)
[2021-12-04 16:00] VITALS: BP 143/79
[2021-12-04] MEDS: ONDANSETRON HCL 4MG/2ML INJ IV PRN ×2 (17:05→21:47)
[2021-12-04 18:42] LABS: HEPATITIS B SURFACE ANTIGEN NEGATIVE
[2021-12-04 20:00] VITALS: BP 137/80
[2021-12-04] MEDS: SENNOSIDES/DOCUSATE SOD 8.6/50MG TABLET PO SCH (21:47)
[2021-12-05] MEDS: HYDROCODONE/ACETAMINOPHEN 5/325MG TABLET PO PRN ×3 (02:25→23:08)
[2021-12-05] MEDS: DIPHENHYDRAMINE 50MG/ML VIAL IV PRN (02:30)
[2021-12-05 04:00] VITALS: BP 129/72
[2021-12-05] MEDS: PANTOPRAZOLE 40MG DR TABLET PO SCH ×2 (07:40→21:33)
[2021-12-05] MEDS: SUCRALFATE 1 G/10 ML UDC PO SCH ×4 (07:40→21:33)
[2021-12-05] MEDS: FERROUS SULFATE 325MG TABLET PO SCH ×3 (08:10→18:09)
[2021-12-05] MEDS: DOCUSATE SODIUM 250MG CAPSULE PO SCH ×2 (09:00→17:00)
[2021-12-05] MEDS: ASCORBIC ACID 500 MG TABLET PO SCH ×2 (09:00→21:33)
[2021-12-05] MEDS: AMLODIPINE 10MG TABLET PO SCH (09:00)
[2021-12-05] MEDS: HYDRALAZINE HCL 50MG TABLET PO SCH ×2 (09:00→21:34)
[2021-12-05 12:00] VITALS: BP 121/72
[2021-12-05 15:32] LABS: BASOPHILS % 0.6 % (0.0-2.0); EOSINOPHILS % 0.6 % (0.0-5.0); HEMATOCRIT. 36.6 % (36.0-48.0); HEMOGLOBIN. 11.4 g/dL (12.0-16.0); LYMPHOCYTES % 12.7 % (20.0-50.0); MEAN CORPUSCULAR VOLUME 102.7 fL (81.0-99.0); MEAN PLATELET VOLUME 7.6 fl (7.4-10.4); MONOCYTES % 8.4 % (2.0-8.0); NEUTROPHILS % 77.7 % (40.0-76.0); PLATELET 197 x1000/uL (130-400); RED BLOOD CELL COUNT 3.57 mill/uL (4.2-5.4); RED CELL DISTRIBUTION WIDTH 17.6 % (11.6-14.6)
[2021-12-05 16:00] VITALS: BP 118/69
[2021-12-05 20:00] VITALS: BP 147/75
[2021-12-05] MEDS ORDERED: HYDRALAZINE 20MG/ML VIAL IV PRN (20:45)
[2021-12-05] MEDS: SENNOSIDES/DOCUSATE SOD 8.6/50MG TABLET PO SCH (21:33)
[2021-12-05] MEDS: TEMAZEPAM 15MG CAPSULE PO PRN (23:08)
[2021-12-06] VITALS: BP 129/73
[2021-12-06 04:00] VITALS: BP 148/76
[2021-12-06] MEDS: HYDROCODONE/ACETAMINOPHEN 5/325MG TABLET PO PRN ×3 (04:55→21:59)
[2021-12-06 08:00] VITALS: BP 150/81
[2021-12-06] MEDS: SUCRALFATE 1 G/10 ML UDC PO SCH ×4 (08:48→21:59)
[2021-12-06] MEDS: FERROUS SULFATE 325MG TABLET PO SCH ×3 (08:48→17:31)
[2021-12-06] MEDS: AMLODIPINE 10MG TABLET PO SCH (08:48)
[2021-12-06] MEDS: DOCUSATE SODIUM 250MG CAPSULE PO SCH ×2 (08:49→16:56)
[2021-12-06] MEDS: PANTOPRAZOLE 40MG DR TABLET PO SCH ×2 (08:49→21:59)
[2021-12-06] MEDS: HYDRALAZINE HCL 50MG TABLET PO SCH ×2 (08:49→21:58)
[2021-12-06] MEDS: ASCORBIC ACID 500 MG TABLET PO SCH ×2 (08:49→21:59)
[2021-12-06 12:00] VITALS: BP 142/76
[2021-12-06 16:00] VITALS: BP 130/72
[2021-12-06 20:00] VITALS: BP 142/77
[2021-12-06] MEDS: TEMAZEPAM 15MG CAPSULE PO PRN (21:59)
[2021-12-06] MEDS: SENNOSIDES/DOCUSATE SOD 8.6/50MG TABLET PO SCH (21:59)
[2021-12-07] VITALS: BP 150/84
[2021-12-07 03:45] VITALS: BP 143/83
[2021-12-07 08:00] VITALS: BP 139/84
[2021-12-07] MEDS: DOCUSATE SODIUM 250MG CAPSULE PO SCH ×2 (09:04→17:57)
[2021-12-07] MEDS: ASCORBIC ACID 500 MG TABLET PO SCH ×2 (09:04→22:00)
[2021-12-07] MEDS: FERROUS SULFATE 325MG TABLET PO SCH ×3 (09:04→17:57)
[2021-12-07] MEDS: SUCRALFATE 1 G/10 ML UDC PO SCH ×4 (09:04→22:01)
[2021-12-07] MEDS: HYDRALAZINE HCL 50MG TABLET PO SCH ×2 (09:05→22:01)
[2021-12-07] MEDS: AMLODIPINE 10MG TABLET PO SCH (09:05)
[2021-12-07] MEDS: PANTOPRAZOLE 40MG DR TABLET PO SCH ×2 (09:16→22:00)
[2021-12-07 10:41] LABS: HEMATOCRIT. 36.8 % (36.0-48.0); HEMOGLOBIN. 11.5 g/dL (12.0-16.0); MEAN CORPUSCULAR HEMOGLOBIN 31.8 pg (28.0-32.0); MEAN CORPUSCULAR VOLUME 102.2 fL (81.0-99.0); MEAN PLATELET VOLUME 8.5 fl (7.4-10.4); PLATELET 187 x1000/uL (130-400); RED CELL DISTRIBUTION WIDTH 16.5 % (11.6-14.6)
[2021-12-07 12:00] VITALS: BP 144/77
[2021-12-07] MEDS: HYDROCODONE/ACETAMINOPHEN 5/325MG TABLET PO PRN ×2 (13:06→22:54)
[2021-12-07 13:40] LABS: PLATELET ESTIMATE NORMAL
[2021-12-07 16:00] VITALS: BP 136/78
[2021-12-07 20:00] VITALS: BP 120/67
[2021-12-07] MEDS: SENNOSIDES/DOCUSATE SOD 8.6/50MG TABLET PO SCH (22:00)
[2021-12-07] MEDS: TEMAZEPAM 15MG CAPSULE PO PRN (22:54)
[2021-12-08] VITALS: BP 113/66
[2021-12-08 04:00] VITALS: BP 122/60
[2021-12-08] MEDS: SUCRALFATE 1 G/10 ML UDC PO SCH ×4 (08:54→22:34)
[2021-12-08] MEDS: PANTOPRAZOLE 40MG DR TABLET PO SCH ×2 (08:55→22:34)
[2021-12-08] MEDS: DOCUSATE SODIUM 250MG CAPSULE PO SCH ×2 (08:55→18:11)
[2021-12-08] MEDS: AMLODIPINE 10MG TABLET PO SCH (08:55)
[2021-12-08] MEDS: FERROUS SULFATE 325MG TABLET PO SCH ×3 (08:55→18:11)
[2021-12-08] MEDS: HYDRALAZINE HCL 50MG TABLET PO SCH ×2 (08:55→22:35)
[2021-12-08] MEDS: ASCORBIC ACID 500 MG TABLET PO SCH ×2 (08:55→22:34)
[2021-12-08] MEDS: HYDROCODONE/ACETAMINOPHEN 5/325MG TABLET PO PRN ×2 (09:03→18:53)
[2021-12-08 11:59] VITALS: BP 131/71
[2021-12-08 12:30] VITALS: BP 144/88
[2021-12-08 20:00] VITALS: BP 126/76
[2021-12-08 20:04] LABS: BASOPHILS % 0.2 % (0.0-2.0); EOSINOPHILS % 0.8 % (0.0-5.0); HEMATOCRIT. 35.4 % (36.0-48.0); HEMOGLOBIN. 11.1 g/dL (12.0-16.0); LYMPHOCYTES % 14.8 % (20.0-50.0); MEAN CORPUSCULAR HEMOGLOBIN 31.8 pg (28.0-32.0); MEAN CORPUSCULAR VOLUME 101.2 fL (81.0-99.0); MEAN PLATELET VOLUME 7.7 fl (7.4-10.4); MONOCYTES % 11.1 % (2.0-8.0); NEUTROPHILS % 73.1 % (40.0-76.0); PLATELET 171 x1000/uL (130-400); RED CELL DISTRIBUTION WIDTH 16.1 % (11.6-14.6)
[2021-12-08] MEDS: SENNOSIDES/DOCUSATE SOD 8.6/50MG TABLET PO SCH (22:51)
[2021-12-09] VITALS: BP 135/75
[2021-12-09] MEDS: TEMAZEPAM 15MG CAPSULE PO PRN ×2 (01:13→22:51)
[2021-12-09] MEDS: HYDROCODONE/ACETAMINOPHEN 5/325MG TABLET PO PRN ×3 (01:14→17:58)
[2021-12-09 04:00] VITALS: BP 144/79
[2021-12-09 08:00] VITALS: BP 148/89
[2021-12-09] MEDS: FERROUS SULFATE 325MG TABLET PO SCH ×3 (08:52→17:53)
[2021-12-09] MEDS: AMLODIPINE 10MG TABLET PO SCH (08:53)
[2021-12-09] MEDS: HYDRALAZINE HCL 50MG TABLET PO SCH ×2 (08:53→21:00)
[2021-12-09] MEDS: ASCORBIC ACID 500 MG TABLET PO SCH ×2 (08:53→22:51)
[2021-12-09] MEDS: PANTOPRAZOLE 40MG DR TABLET PO SCH ×2 (08:53→22:51)
[2021-12-09] MEDS: SUCRALFATE 1 G/10 ML UDC PO SCH ×4 (08:54→22:49)
[2021-12-09] MEDS: DOCUSATE SODIUM 250MG CAPSULE PO SCH ×2 (08:54→17:53)
[2021-12-09 12:00] VITALS: BP 90/60
[2021-12-09] MEDS ORDERED: HYDRALAZINE 10 MG in SODIUM CHLORIDE 0.9% 49.5 ML IV PRN ×2 (15:00→18:45)
[2021-12-09 16:00] VITALS: BP 142/58
[2021-12-09 20:00] VITALS: BP 157/88
[2021-12-09] MEDS: SENNOSIDES/DOCUSATE SOD 8.6/50MG TABLET PO SCH (21:00)
[2021-12-10] MEDS: HYDROCODONE/ACETAMINOPHEN 5/325MG TABLET PO PRN ×2 (02:45→09:30)
[2021-12-10 04:00] VITALS: BP 112/72
[2021-12-10 06:41] LABS: BASOPHILS % 0.1 % (0.0-2.0); EOSINOPHILS % 0.4 % (0.0-5.0); HEMATOCRIT. 30.6 % (36.0-48.0); LYMPHOCYTES % 9.5 % (20.0-50.0); MEAN CORPUSCULAR HEMOGLOBIN 32.3 pg (28.0-32.0); MEAN CORPUSCULAR VOLUME 99.1 fL (81.0-99.0); MEAN PLATELET VOLUME 8.1 fl (7.4-10.4); MONOCYTES % 7.4 % (2.0-8.0); NEUTROPHILS % 82.6 % (40.0-76.0); PLATELET 156 x1000/uL (130-400); RED BLOOD CELL COUNT 3.09 mill/uL (4.2-5.4)
[2021-12-10 08:00] VITALS: BP 160/130
[2021-12-10] MEDS: ASCORBIC ACID 500 MG TABLET PO SCH (08:40)
[2021-12-10] MEDS: HYDRALAZINE HCL 50MG TABLET PO SCH (08:40)
[2021-12-10] MEDS: SUCRALFATE 1 G/10 ML UDC PO SCH ×2 (08:40→13:21)
[2021-12-10] MEDS: FERROUS SULFATE 325MG TABLET PO SCH ×2 (08:40→13:22)
[2021-12-10] MEDS: PANTOPRAZOLE 40MG DR TABLET PO SCH (08:41)
[2021-12-10] MEDS: DOCUSATE SODIUM 250MG CAPSULE PO SCH (08:41)
[2021-12-10] MEDS: AMLODIPINE 10MG TABLET PO SCH (08:41)
[2021-12-10 12:00] VITALS: BP 149/119
[2021-12-10 16:00] VITALS: BP 155/120
== END 2021-12-10 17:03 | DRG 377 ==
LOC: ER 03:00 → 7WST 06:38 → 6EST 12-08 12:11
PROVIDERS: ADMIT Internal Medicine; ATTEND Internal Medicine
PROC: 5A1D70Z Performance of Urinary Filtration, Intermittent, Less than 6 Hours Per Day (ICD-10-PCS; 2021-11-12)
PROC: 0DJ08ZZ Inspection of Upper Intestinal Tract, Via Natural or Artificial Opening Endoscopic (ICD-10-PCS; principal; 2021-11-13)
PROC: 5A1D70Z Performance of Urinary Filtration, Intermittent, Less than 6 Hours Per Day (ICD-10-PCS; 2021-11-14)
PROC: 5A1D70Z Performance of Urinary Filtration, Intermittent, Less than 6 Hours Per Day (ICD-10-PCS; 2021-11-17)
PROC: 5A1D70Z Performance of Urinary Filtration, Intermittent, Less than 6 Hours Per Day (ICD-10-PCS; 2021-11-19)
PROC: 5A1D70Z Performance of Urinary Filtration, Intermittent, Less than 6 Hours Per Day (ICD-10-PCS; 2021-11-21)
PROC: 5A1D70Z Performance of Urinary Filtration, Intermittent, Less than 6 Hours Per Day (ICD-10-PCS; 2021-11-24)
PROC: 5A1D70Z Performance of Urinary Filtration, Intermittent, Less than 6 Hours Per Day (ICD-10-PCS; 2021-11-26)
PROC: 5A1D70Z Performance of Urinary Filtration, Intermittent, Less than 6 Hours Per Day (ICD-10-PCS; 2021-11-28)
PROC: 5A1D70Z Performance of Urinary Filtration, Intermittent, Less than 6 Hours Per Day (ICD-10-PCS; 2021-12-01)
PROC: 5A1D70Z Performance of Urinary Filtration, Intermittent, Less than 6 Hours Per Day (ICD-10-PCS; 2021-12-03)
PROC: 5A1D70Z Performance of Urinary Filtration, Intermittent, Less than 6 Hours Per Day (ICD-10-PCS; 2021-12-05)
PROC: 5A1D70Z Performance of Urinary Filtration, Intermittent, Less than 6 Hours Per Day (ICD-10-PCS; 2021-12-08)
DX: K57.31 Diverticulosis of large intestine without perforation or abscess with bleeding (principal); E43 Unspecified severe protein-calorie malnutrition; N18.6 End stage renal disease; J18.9 Pneumonia, unspecified organism; I13.2 Hypertensive heart and chronic kidney disease with heart failure and with stage 5 chronic kidney disease, or end stage renal disease; D62 Acute posthemorrhagic anemia; J44.0 Chronic obstructive pulmonary disease with (acute) lower respiratory infection; K56.600 Partial intestinal obstruction, unspecified as to cause; Z68.1 Body mass index [BMI] 19.9 or less, adult; M84.48XA Pathological fracture, other site, initial encounter for fracture; Z20.822 Contact with and (suspected) exposure to COVID-19; R91.1 Solitary pulmonary nodule; I50.9 Heart failure, unspecified; K52.9 Noninfective gastroenteritis and colitis, unspecified; K28.9 Gastrojejunal ulcer, unspecified as acute or chronic, without hemorrhage or perforation; D63.8 Anemia in other chronic diseases classified elsewhere; Z59.00 Homelessness unspecified; Z99.2 Dependence on renal dialysis; Z87.11 Personal history of peptic ulcer disease; Z86.73 Personal history of transient ischemic attack (TIA), and cerebral infarction without residual deficits; Z98.84 Bariatric surgery status; Z88.0 Allergy status to penicillin
CPT/HCPCS: 36415; 36600; 71045; 71250; 74176; 74177; 76700; 80048; 80053; 80061; 81003; 82375; 82607; 82728; 82805; 82962; 83540; 83550; 83605; 84145; 84443; 85014; 85018; 85025; 85044; 86705; 86709; 86803; 86850; 86900; 87340; 87426; 93005; 93306; 93970; 97116; 97162; 97166; 97530; 97535; 99291; C9113; J0360; J0885; J1200; J1956; J2250; J2270; J2405; J2704; J2765; J3490; Q9963; Q9967; U0003; U0005